=== PATIENT | female | born 1960 | race Caucasian/White ===

== ENCOUNTER → 2016-10-30 | Outpatient (CLI) | payer OTHER ==
[~2016-10-30] MED LIST: 'PARAFON FORTE500 M1 PO; ADVAIR DISKUS 51 DSK IH; ALBUTEROL INH; ALBUTEROL0.09 MG/A2 IH; ANAPROX DS550 MG PO; ASPIRIN81 M1 PO; ATIVAN1 MG PO; CENTRUM SILVER1 TA2 PO; CLINDAMYCIN HC300 MG PO; COMBIVENT1 ARO IH; DULE1ARO1 INH; EFFEXOR XR75 M1 PO; EFFEXOR75 MG PO; EVISTA60 MG PO; FIBER CHOICE PL1 CTB PO; FLEXERIL10 MG PO; HYDROCODONE BIT1 T11 PO; IPRATROPIUM INH; L-LYSINE1000 MG PO; LEVAQUIN750 MG PO; LEVOFLOXACIN500 MG PO; LIPITOR40 MG PO; MOBIC15 MG PO; NAPROSYN500 MG PO; NEXIUM40 MG PO; PREDNICOT10 MG PO; PROZAC40 MG PO; ROBITUSSIN AC 110 ML PO; TRAMADOL HCL50 MG PO; VICODIN 5/500 505 MG PO; VITAMIN D 3 PO; ZITHROMAX Z PA250 MG PO; ZOCOR40 MG PO; [UNRECOGNIZED DRUG - OTHER] INH
[2016-10-30 13:25] LABS: BASO % 0.6 % (0.0-1.0); EOS % 0.3 % (1.0-4.0); HEMATOCRIT 31.4 % (37.0-47.0); HEMOGLOBIN 9.9 g/dl (12.0-16.0); IG # 0.1 10*3/uL (0.0-0.1); LYMPH % 28.1 % (27.0-41.0); MEAN CELL VOLUME 87.7 fl (81.0-99.0); MEAN CORPUSCULAR HGB 27.7 pg (27.0-31.0); MEAN CORPUSCULAR HGB CONC 31.5 g/dl (33.0-37.0); MEAN PLATELET VOLUME 8.9 fl (9.6-12.3); MONO # 0.6 10*3/uL (0.1-1.0); MONO % 8.7 % (3.0-9.0); NEUT # 4.4 10*3/uL (2.3-7.9); NEUT % 61.6 % (47.0-73.0); PLATELET COUNT AUTOMATED 663 10*3/uL (130-400); RED BLOOD COUNT 3.58 10*6/uL (4.10-5.10); RED CELL DISTRI WIDTH 14.8 % (0-14.5); WHITE BLOOD COUNT 7.1 10*3/uL (4.8-10.8)
== END | disposition home or self-care (01) ==
LOC: LAB 13:08
PROVIDERS: Internal Medicine Hematology & Oncology
DX: C50.912 Malignant neoplasm of unspecified site of left female breast (principal)

== ENCOUNTER → 2016-11-07 | Outpatient (CLI) | payer OTHER ==
[2016-11-07 12:51] LABS: HEMATOCRIT 32.4 % (37.0-47.0); HEMOGLOBIN 10.2 g/dl (12.0-16.0); MEAN CELL VOLUME 88.8 fl (81.0-99.0); MEAN CORPUSCULAR HGB 27.9 pg (27.0-31.0); MEAN CORPUSCULAR HGB CONC 31.5 g/dl (33.0-37.0); MEAN PLATELET VOLUME 9.8 fl (9.6-12.3); PLATELET COUNT AUTOMATED 368 10*3/uL (130-400); RED BLOOD COUNT 3.65 10*6/uL (4.10-5.10); RED CELL DISTRI WIDTH 15.2 % (0-14.5); WHITE BLOOD COUNT 10.4 10*3/uL (4.8-10.8)
[2016-11-07 13:16] LABS: DOHLE BODIES MODERATE; LYMPHOCYTE # 1.2 10*3/uL (1.3-4.4); NEUTROPHIL # 9.2 10*3/uL (2.3-7.9); NEUTROPHILS 88 % (47-73); PLATELET SUFFICIENCY NORMAL (NORMAL); TOTAL CELLS COUNTED 100 #CELLS; TOXIC GRANULATION SLIGHT
== END | disposition home or self-care (01) ==
LOC: LAB 12:32
PROVIDERS: Internal Medicine Hematology & Oncology
DX: C50.912 Malignant neoplasm of unspecified site of left female breast (principal)

== ENCOUNTER → 2017-08-20 | Day surgery (SDC) | payer SELFPAY ==
[~2017-08-20] VITALS: Ht 167.6 cm; Wt 66.7 kg
[~2017-08-20] MED LIST changes: +ALENDRONATE SOD70 M1 PO; +FENOFIBRATE160 MG PO; +TAMOXIFEN CITRA20 MG PO; +ZOFRAN8 M1 PO
--- NOTE | ~2017-08-20 | PROC NOTE ---
[place], [place] PROCEDURE NOTE NAME: KAROLINA CORTEZ [facility] #: [id number] UNIT #: [id number] ROOM: DOCTOR: DAISY RAI MD,AMINATA BIRTHDATE: [birth year] DOS: 08/20/2017 PROCEDURE: Fiberoptic bronchoscopy. PREOPERATIVE DIAGNOSIS: The patient with evidence of a nodule noted in the right upper lung as a cluster. POSTOPERATIVE DIAGNOSES: The patient with mucus impaction in the airway, endobronchial tree bilaterally. No endobronchial obstructive lesions. PROCEDURE DESCRIPTION: Informed consent obtained for the patient. The patient brought to the OR and placed in supine position. Conscious sedation administered by Anesthesia Department. After achieving proper sedation, airway introduced into the mouth. Bronchoscope advanced to the airway into laryngeal area. Epiglottis and vocal cords were seen. Bronchoscope advanced to the vocal cord and tracheal lumen. Tracheal lumen was identified for this patient with moderate amount of mucus secretion, which was suctioned out to the gian level. All the bronchial opening was examined. There were no endobronchial obstructive lesion, mucous plug was cleared off of endobronchial tree bilaterally. Bronchial washings sent for culture. Procedure well tolerated by the patient without any difficulty. The patient will be continued on current treatment and outpatient followup has been scheduled for the patient to discuss the finding and culture results. AMINATA VILLA MD CM:PROCNOTE:PROCEDURE NOTE 1403 [id number] AMINATA RAI MD
[2017-08-20 08:10] VITALS: BP 107/50
[2017-08-20 09:25] VITALS: BP 83/49
[2017-08-20 09:40] VITALS: BP 113/56
[2017-08-20 09:55] VITALS: BP 118/56
[2017-08-21 14:08] LABS: ACID FAST SPEC PROCESSING Concentration (.)
== END | disposition home or self-care (01) ==
LOC: SDC 08-17 16:15
PROVIDERS: Internal Medicine Critical Care Medicine
DX: J40 Bronchitis, not specified as acute or chronic (principal); J44.9 Chronic obstructive pulmonary disease, unspecified; K21.9 Gastro-esophageal reflux disease without esophagitis; F41.9 Anxiety disorder, unspecified; F32.9 Major depressive disorder, single episode, unspecified; F17.210 Nicotine dependence, cigarettes, uncomplicated; Z96.651 Presence of right artificial knee joint; Z98.890 Other specified postprocedural states; Z88.0 Allergy status to penicillin; Z88.1 Allergy status to other antibiotic agents; Z79.899 Other long term (current) drug therapy; Z85.3 Personal history of malignant neoplasm of breast

== ENCOUNTER → 2017-08-23 | Outpatient (CLI) | payer SELFPAY | END | disposition home or self-care (01) | LOC: MAMMO 09:00 | DX: Z12.31 Encounter for screening mammogram for malignant neoplasm of breast (principal); Z51.11 Encounter for antineoplastic chemotherapy; Z45.2 Encounter for adjustment and management of vascular access device; C50.912 Malignant neoplasm of unspecified site of left female breast; D70.1 Agranulocytosis secondary to cancer chemotherapy; R11.2 Nausea with vomiting, unspecified; I95.9 Hypotension, unspecified; D64.81 Anemia due to antineoplastic chemotherapy; T82.868A Thrombosis due to vascular prosthetic devices, implants and grafts, initial encounter; C50.412 Malignant neoplasm of upper-outer quadrant of left female breast; Z90.12 Acquired absence of left breast and nipple ==

== ENCOUNTER 2018-03-02 17:00 | Inpatient (IN) | payer SELFPAY ==
[~2018-03-02] VITALS: Ht 162.6 cm; Wt 62.8 kg
--- NOTE | ~2018-03-02 | PR ---
[place], [place] PROGRESS NOTE NAME: KAROLINA CORTEZ [facility] #: [id number] UNIT #: [id number] ROOM: 512 DOCTOR: YOEL NEWTON DO BIRTHDATE: [birth year] DOS: 03/06/2018 SUBJECTIVE: The patient was seen and examined at the bedside. She reports experiencing abdominal pain whenever she coughs. The cough remains dry and she denies fevers, chills, chest pain, nausea, vomiting or abdominal pain. OBJECTIVE: VITAL SIGNS: Showed temperature at 98.2 degrees Fahrenheit, pulse rate is 92, respiratory rate is 18, blood pressure is 125/65, pulse ox is 99% on room air. GENERAL APPEARANCE: The patient was alert, awake, cooperative, responsive and in no acute distress. HEENT: The head was normocephalic and atraumatic. The eyes were without lesions or ulcerations. NECK: The trachea was midline. RESPIRATORY: Rhonchi and expiratory wheezing was appreciated, but list is noted to be improved from prior examinations. CARDIOVASCULAR: Regular rate and rhythm. No gallops, rubs, or murmurs were appreciated and the patient was without edema to her lower extremities. ABDOMEN: Soft and nontender to palpation. Bowel sounds were auscultated on exam. LABORATORY DATA: The CBC from today shows a white count at 9.7, hemoglobin at 10.4, hematocrit at 32.8 and platelet count at 434. Chemistries from today show sodium at 142, potassium at 4.5, chloride at 106, bicarbonate at 30, BUN at 19, creatinine at 1.07, glucose at 88, calcium at 9.1, magnesium at 1.7, total bilirubin at 0.2, AST at 17, ALT at 34, alkaline phosphatase at 53 and albumin at 2.8. Again, sputum culture is noted to have grown out Enterobacter aerogenes and the sensitivities were reviewed. IMPRESSION: 1. Acute exacerbation of chronic obstructive pulmonary disease and this is improving. 2. History of breast cancer. 3. Tobacco abuse. 4. Moderate protein-calorie malnutrition. PLAN OF MANAGEMENT: From a pulmonary standpoint, the patient is stable for discharge and it is advised that she be discharged with oral Levaquin and a prednisone taper. Yoel Newton DO [place], [place] PROGRESS NOTE NAME: CEE CORTEZTIM Rueda UNIT #: [id number] ROOM: 512 DOCTOR: YOEL NEWTON DO BIRTHDATE: [birth year] AMINATA VILLA MD CM:TIFFANI [id number] YOEL NEWTON DO 03/06/18 1054 interface
--- NOTE | ~2018-03-02 | PR ---
[place], [place] PROGRESS NOTE NAME: KAROLINA CORTEZ [facility] #: [id number] UNIT #: [id number] ROOM: 512 DOCTOR: DAISY RAI MD,AMINATA BIRTHDATE: [birth year] DOS: 03/04/2018 SUBJECTIVE: The patient noted comfortable without any acute distress, resting on the bed. The coughing has been noted decreased. There were symptoms of chest pain. The wheezing was also reported. Denies symptoms of abdominal pain. The cultures of yesterday noted with gram-negative rods. OBJECTIVE: VITAL SIGNS: The patient showed normal temperature, respiratory rate 18, heart rate 62 and blood pressure 134/69. Pulse oxygen saturation patient on room air was 97% saturation. HEENT: No acute change. NECK: Supple. CARDIOVASCULAR: S1, S2 is audible. LUNGS: Expiratory wheezing without any crackles. ABDOMEN: Soft and nontender. LABORATORY DATA: Culture of the sputum light growth of gram-negative bacilli. The Gram stain was noted with moderate epithelial cells, pretty white blood cells, many budding yeast, few gram-positive cocci in pairs. IMPRESSION: 1. Bilateral pulmonary nodular opacity with possibility of chronic infection etiologies. 2. History of breast cancer. 3. Acute tracheobronchitis, gram-negative bacilli, pending identification sensitivities. PLAN OF MANAGEMENT: Monitor culture results. No changes in treatment at this time immediately will be needed. Continuation of all other previous treatment as in progress. Usual care. Supportive plan of treatment. AMINATA VILLA MD CM:PNTRANS [id number] AMINATA RAI MD 03/04/18 1037 interface
--- NOTE | ~2018-03-02 | PR ---
[place], [place] PROGRESS NOTE NAME: KAROLINA CORTEZ [facility] #: [id number] UNIT #: [id number] ROOM: 512 DOCTOR: DAISY RAI MD,AMINATA BIRTHDATE: [birth year] DOS: 03/06/2018 PULMONARY PROGRESS NOTE SUBJECTIVE: The patient was independently seen and examined today with [id number] encounter, history was confirmed. Physical examination performed. The labs were reviewed. Assessment and management of the patient for today's was personally completed. Note done by the medical esthetician, was approved. She has been noted with gradual reduction. There were no sputum expectoration. Denies symptoms of fever or chills. Denies any abdominal pain. PHYSICAL EXAMINATION: VITAL SIGNS: For the patient, which has been recorded showed the temperature noted as normal. The respiratory rate 18, heart rate 92, blood pressure was normal. A pulse oxygen saturation of the patient recorded as 99% saturation on room air at rest. LUNGS: Noted with occasional wheezing, no crackles. ABDOMEN: Soft, nontender. EXTREMITIES: No edema. LABORATORY DATA: CBC: WBC count normal, hemoglobin 10. IMPRESSION: The patient with progressive resolution and acute tracheobronchitis, gram-negative infection, started on the fluoroquinolones orally, steroids have been gradually decreased. PLAN OF TREATMENT: Continuation of the current therapy for the patient as previously. All other plan of management and care. Other therapies. AMINATA VILLA MD CM:PNTRANS [id number] AMINATA RAI MD 03/28/18 0744 interface
--- NOTE | ~2018-03-02 | EKG ---
[place], [place] ELECTROCARDIOGRAM REPORT NAME: KAROLINA CORTEZ UNIT #: [id number] ROOM: 512 DOCTOR: TERESA DRAFT REPORT BIRTHDATE: [birth year] [facility] Test Date: 2018-03-02 Test Time: 18:00:11 Pat Name: KAROLINA CORTEZ Department: 5E Room: 512 Gender: F Sandwich [employer] Carrier: Sada Tirado : 1960 Requested By: RANDALL ECKERT Order Number: [id number] Reading MD: Jose Briones MD Measurements Intervals [place] Rate: 103 P: 89 WI: 132 QRS: 93 QRSD: 87 T: 39 QT: 341 QTc: 447 Interpretive Statements Sinus tachycardia Borderline right axis deviation Baseline wander in lead(s) V4,V6 Electronically Signed On 03-04-2018 8:41:05 PDT by Jose Briones MD CM:EKGRPT:ELECTROCARDIOGRAM REPORT [id number] RANDALL ECKERT EPIPHANY DRAFT REPORT RANDALL ECKERT
--- NOTE | ~2018-03-02 | PR ---
[place], [place] PROGRESS NOTE NAME: KAROLINA CORTEZ [facility] #: [id number] UNIT #: [id number] ROOM: 512 DOCTOR: YOEL FLORES DO BIRTHDATE: [birth year] DOS: 03/05/2018 ATTENDING PHYSICIAN: Dr. Aminata Villa. SUBJECTIVE: The patient was seen and examined at the bedside. She was noted to be comfortable and in no apparent distress. The patient complains of subjective chills as well as a dry cough. She denies fevers, chest pain, nausea, vomiting, or abdominal pain. OBJECTIVE: VITAL SIGNS: Temperature was 97.7, heart rate was 84, respiratory rate was 18, blood pressure was 125/72, and her pulse oximetry was 99% on room air. GENERAL APPEARANCE: The patient was awake, alert, in no acute distress and she was responsive. HEENT: Her head was normocephalic and atraumatic. Eyes were without lesions or ulcerations. NECK: Similarly without lesions, scars or masses. RESPIRATORY: Lungs were with wheezing diffusely. The patient was with occasional coughing. No crackles were appreciated. ABDOMEN: Soft and nontender. Bowel sounds were auscultated. LABORATORY DATA: Most recent labs from 03/04/2018 show CBC significant for a white count at 6.6, hemoglobin at 9.6, hematocrit at 31.3, and platelets at 337. Her chemistries show sodium at 143, potassium at 4.3, chloride at 112, bicarbonate at 25, BUN at 10, creatinine at 0.95, glucose at 150, and calcium at 8.3. Sputum culture obtained on 03/03/2018 shows final growth for light amount of Enterobacter aerogenes with resistance to Augmentin, ampicillin, Unasyn and cefuroxime. IMPRESSION: 1. Acute exacerbation of chronic obstructive pulmonary disease, which is improving. 2. Acute renal failure, which has resolved. 3. History of breast cancer. 4. Tobacco abuse. PLAN OF MANAGEMENT: IV steroids have been decreased in frequency to Solu-Medrol 40 mg daily. IV antibiotics are to be discontinued and the patient is to be transitioned to oral antibiotics. The patient is stable from a pulmonary standpoint for consideration of discharge planning. Yoel Chiao, DO [place], [place] PROGRESS NOTE NAME: CEE CORTEZTIM Rueda UNIT #: [id number] ROOM: 512 DOCTOR: YOEL FLORES DO BIRTHDATE: [birth year] AMINATA VILLA MD CM:PNMATY [id number] YOEL FLORES DO 03/05/188 interface
--- NOTE | ~2018-03-02 | CON ---
[place], [place] REPORT OF CONSULTATION NAME: KAROLINA CORTEZ [facility] #: [id number] UNIT #: [id number] ROOM: 512 DOCTOR: AMINATA PIMENTEL MD BIRTHDATE: [birth year] DOS: 03/03/2018 REASON FOR CONSULTATION: To assess the patient's current normal CT scan of chest and other abnormal respiratory symptoms. HISTORY OF PRESENT ILLNESS: This is a 57-year-old white female patient who has been known to me from the past. The patient has been assessed once in the office in 08/2017 underwent fibrobronchoscopy for assessment of pulmonary nodules. Bronchoscopy done that was noted negative from further findings of Mycobacterium avium complex of the infection. The patient was doing well until the last few days. The patient developed symptoms of increased chest congestion, coughing without any sputum expectoration. Denies symptoms of hemoptysis, fever or chills. The patient denies symptoms of weight loss. Shortness of breath was noted for this patient that has been noted worsened. REVIEW OF SYSTEMS: Remaining systems were reviewed with the patient as follows: CONSTITUTIONAL: She does have of fatigue and tiredness. Denies symptoms of fever or chills. EYES: Denies any burning, redness, or tenderness. EARS, NOSE, THROAT SYMPTOMS: Denies sore throat, hoarseness, otalgia, postnasal drainage. CARDIOVASCULAR: Denies anginal pain, edema or pain of the lower extremities. GASTROINTESTINAL: Dysphagia, nausea, vomiting, diarrhea, abdominal pain, hematemesis, melena or hematochezia. SKIN: Denies abnormal lesions or rashes. CENTRAL NERVOUS SYSTEM: No dizziness, headache, diplopia, syncopal episodes. The remaining systems were reviewed, they were noted all negative. PAST MEDICAL HISTORY: The patient was known with history of: 1. Chronic obstructive pulmonary disease. 2. History of pulmonary nodule, which was known for this patient in the past for this patient with ground glass opacity and micronodule clusters noted in the right upper lobe. CT scan in [facility] on 08/09/2017. 3. History of breast cancer for this patient was also known for this patient diagnosed in 2004 and later in 05/2018, underwent lumpectomy and currently getting hormonal treatment. 4. History of general anxiety disorder for this patient. 5. Gastroesophageal reflux. 6. Hypercholesterolemia. 7. Hyperlipidemia. 8. Osteoporosis. 9. Bronchial asthma. PAST SURGICAL HISTORY: 1. Carpal tunnel release. 2. . 3. Lumpectomy, left breast in 2004 and then in 05/2018 in [facility]. 4. Laparoscopic cholecystectomy. [place], [place] REPORT OF CONSULTATION NAME: KAROLINA CORTEZ UNIT #: [id number] ROOM: [facility] DOCTOR: HEMA PIMENTEL MDM BIRTHDATE: 60 5. D and C. 6. Right total knee replacement. 7. Fibrobronchoscopy done of the right upper lobe in the bronchial washing rather done on 08/20/2017. SOCIAL HISTORY: The patient is , has 2 children, lives at home, work in the [employer] for 29 years. She has been noted tobacco use from age of [age] years old, 2 packs of cigarettes per day, still smoking cigarettes actively. Denies any history of alcohol use or illicit drugs. FAMILY HISTORY: Father at 85 years old, complication of congestive heart failure. Mother at 60 years with complication related to the breast cancer. MEDICATIONS: Medications, which has been listed at the time of admission from home use of lorazepam, Dulera, multivitamin, Lipitor, Nexium, Vicodin, Effexor, fenofibrate, tamoxifen, Fosamax and other p.r.n. medications. DRUG ALLERGIES: Noted allergies: 1. PENICILLIN. 2. SULFA DRUGS. PHYSICAL EXAMINATION: GENERAL: A 57-year-old female patient who has been currently noted to be awake and alert without any acute distress at this time of the assessment. VITAL SIGNS: Height were recorded by the nursing staff for the current admission with height of 5 feet 4 inches, weight 138 pounds, BMI 23. Temperature 99.8 degrees Fahrenheit a normal temperature, respiratory rate 18-20, heart rate of 62-100, blood pressure 113/75-106/55 and pulse ox saturation on room air was 95% saturation. HEENT: Examination shows head was atraumatic. Eyes nonicterus. NECK: Supple. CARDIOVASCULAR: S1, S2 is audible. LUNGS: The patient was noted without any crackles. Expiratory wheezing noted diffusely in the lungs. ABDOMEN: Soft, nontender and flat. EXTREMITIES: Without any acute edema. SKIN: Visible skin lesions or rashes. CENTRAL NERVOUS SYSTEM: No gross focal neurologic deficit. LABORATORY DATA: The lab review for this patient. The CBC that was done in the Emergency yesterday were noted with WBC count 13.7, hemoglobin 11.8, remaining CBC normal. CMP for the patient on 03/02/2018, BUN 21, creatinine 1.38. BUN and creatinine were normal. Troponin rather 3 sets yesterday were noted normal. The CBC of this morning, hemoglobin 9.6, WBC count normal and platelet count remains normal. BMP this morning noted normal BUN. The creatinine noted as 1.04. Urinalysis noted, 3+ leukocyte esterase. PT/PTT yesterday were noted as normal. Chest x-ray of the patient, review for patient of 03/02/2018, for the patient noted with a change in hyperinflation. No visible gross pulmonary nodules. The CT scan chest that was done without contrast yesterday, the [place], [place] REPORT OF CONSULTATION NAME: KAROLINA CORTEZ UNIT #: [id number] ROOM: [facility] DOCTOR[facility] [birth year] patient was reviewed, shows evidence of scarring was noted mostly in the upper lung. Scattered pulmonary nodules, tree-in-bud appearance was noted in the right upper lobe as well as the bilateral lower lobes. The nodule noted in micronodule patient is central lobular appearance. There was no lymphadenopathy. Acute infiltration noted for patient consolidation in the left lower lobe. IMPRESSION: 1. The patient who has been currently noted with evidence of current pulmonary nodule, which has been noted in the right upper and lower lobe as well and acute pneumonia in the left lower lobe, nonaspiration. 2. The patient with acute exacerbation of bronchial asthma and chronic obstructive pulmonary disease would be considered as well. 3. Current differential diagnosis for the patient of the nodule patient would be considered as atypical infection less likely to be a malignant process; however, the bronchoscopy recently did not isolate any acid fast, for the patient at that time. 4. History of known breast cancer. The patient recurrence of the left breast cancer, currently treated with hormonal treatment after surgery for the patient since 05/2017. PLAN OF MANAGEMENT: The patient is already getting Solu-Medrol, bronchodilators, and antibiotics for community-acquired infection. The patient with Zithromax and Rocephin will be continued. Sputum for Gram stain was ordered. Nicotine replacement patch to overcome the nicotine withdrawal. The acid-fast bacillus was ordered to assess the patient for the next 3 specimens once every day. Other plan of therapy and the management change will be ordered based on the progression of the illness. Thanks for allowing me to participate in the care of this patient. AMINATA VILLA MD CM:CONSTR:REPORT OF CONSULTATION 1340 03/28/18 0742 interface
--- NOTE | ~2018-03-02 | PR ---
[place], [place] PROGRESS NOTE NAME: KAROLINA CORTEZ UNIT #: [id number] ROOM: 512 DOCTOR: AMINATA PIMENTEL MD BIRTHDATE: [birth year] DOS: 03/05/2018 The patient start an insert as the patient was independently seen and examined, [id number] encounter, history was confirmed. Physical examination was performed. Labs reviewed. Assessment and management of the patient personally completed. Note done by the emergency medical service coordinator, was approved. SUBJECTIVE: The patient has been noted comfortable at this time, resting on the bed. The coughing has been currently noted nonproductive. She has a reduction sputum expectoration and shortness of breath. The patient was improving. There were no symptoms of chest pain. PHYSICAL EXAMINATION: VITAL SIGNS: Her temperature was noted as normal, respiratory rate 18, heart rate 84 and blood pressure 125/72. Pulse ox saturation on room air 99% saturation. HEENT: No new change. NECK: Supple. CARDIOVASCULAR: S1, S2 is audible. LUNGS: The patient noted with moderate decreased breath sounds without any wheezing. There were no crackles. ABDOMEN: Soft and nontender. EXTREMITIES: No edema. LABORATORY DATA: Culture of the sputum noted light growth of Enterobacter aerogenes, which were noted since multiple antibiotics including fluoroquinolones and others. IMPRESSION: 1. Resolving acute exacerbation of chronic obstructive pulmonary disease, acute tracheobronchitis for this patient at this time with current medical management was given with use of the Zithromax and the Rocephin. 2. History of chronic nicotine dependence as well. 3. Pulmonary nodule workup while the patient remains in progress. PLAN OF MANAGEMENT: Decrease Solu-Medrol 40 mg daily, discontinue Rocephin after today's dose and switching the patient oral Ceftin. Discharge planning could be started from primary care attending. Outpatient followup to be step, the patient post-discharge. Monitor pulmonary nodules and other workup as needed. [place], [place] PROGRESS NOTE NAME: KAROLINA CORTEZ UNIT #: [id number] ROOM: 512 DOCTOR: AMINATA PIMENTEL MD BIRTHDATE: [birth year] AMINATA VILLA MD CM:PNTRANS [phone] AMINATA RAI MD 03/05/18 1016 interface
[2018-03-02 17:05] VITALS: BP 113/75
[2018-03-02 17:29] LABS: BASO # 0.1 10*3/uL (0.0-0.1); BASO % 0.4 % (0.0-1.0); EOS # 0.8 10*3/uL (0.0-0.4); EOS % 5.5 % (1.0-4.0); HEMOGLOBIN 11.8 g/dl (12.0-16.0); LYMPH # 2.1 10*3/uL (1.3-4.4); LYMPH % 15.3 % (27.0-41.0); MEAN CELL VOLUME 89.4 fl (81.0-99.0); MEAN CORPUSCULAR HGB 28.5 pg (27.0-31.0); MEAN CORPUSCULAR HGB CONC 31.9 g/dl (33.0-37.0); MEAN PLATELET VOLUME 9.8 fl (9.6-12.3); MONO # 0.9 10*3/uL (0.1-1.0); MONO % 6.6 % (3.0-9.0); NEUT # 9.9 10*3/uL (2.3-7.9); PLATELET COUNT AUTOMATED 379 10*3/uL (130-400); RED BLOOD COUNT 4.14 10*6/uL (4.10-5.10); RED CELL DISTRI WIDTH 13.2 % (0-14.5); WHITE BLOOD COUNT 13.7 10*3/uL (4.8-10.8)
[2018-03-02 17:45] LABS: ACT PARTIAL THROMBO TIME 26.6 SECONDS (20.8-31.5); INTERNATIONAL NORM RATIO 1.1 (2.0-3.5)
[2018-03-02 17:46] LABS: ALBUMIN 3.5 gm/dl (3.1-4.5); ALKALINE PHOSPHATASE 64 U/L (45-117); BUN 21 mg/dl (7-24); CHLORIDE 103 mmol/L (98-107); CREATININE 1.38 mg/dL (0.55-1.02); LIPASE 90 U/L (73-393); POTASSIUM 3.7 mmol/L (3.5-5.1); SGOT/AST 21 IU/L (3-35); SGPT/ALT 27 U/L (12-78); SODIUM 138 mmol/L (136-145); TOTAL PROTEIN 8.4 gm/dL (6.4-8.2); TROPONIN I < 0.015 ng/ml (<0.045)
[2018-03-02 20:10] VITALS: BP 108/57
[2018-03-03] VITALS: BP 101/55
[2018-03-03 06:33] LABS: BASO # 0.1 10*3/uL (0.0-0.1); BASO % 0.5 % (0.0-1.0); EOS # 0.7 10*3/uL (0.0-0.4); EOS % 7.1 % (1.0-4.0); LYMPH % 21.3 % (27.0-41.0); MEAN CELL VOLUME 90.9 fl (81.0-99.0); MEAN CORPUSCULAR HGB 29.3 pg (27.0-31.0); MEAN CORPUSCULAR HGB CONC 32.2 g/dl (33.0-37.0); MEAN PLATELET VOLUME 10.1 fl (9.6-12.3); MONO # 0.8 10*3/uL (0.1-1.0); MONO % 8.5 % (3.0-9.0); NEUT # 5.9 10*3/uL (2.3-7.9); NEUT % 62.3 % (47.0-73.0); PLATELET COUNT AUTOMATED 330 10*3/uL (130-400); RED BLOOD COUNT 3.28 10*6/uL (4.10-5.10); RED CELL DISTRI WIDTH 13.3 % (0-14.5); WHITE BLOOD COUNT 9.5 10*3/uL (4.8-10.8)
[2018-03-03 06:34] LABS: HEMATOCRIT 29.8 % (37.0-47.0); HEMOGLOBIN 9.6 g/dl (12.0-16.0)
[2018-03-03 06:47] LABS: BUN 13 mg/dl (7-24); CHLORIDE 111 mmol/L (98-107); CHOLESTEROL 107 mg/dL (<200); CREATININE 1.04 mg/dL (0.55-1.02); PHOSPHOROUS 2.1 mg/dL (2.5-4.9); POTASSIUM 3.8 mmol/L (3.5-5.1); SODIUM 144 mmol/L (136-145); TRIGLYCERIDES 110 mg/dl (<150); VLDL CHOLESTEROL 22 mg/dL (6-40)
[2018-03-03 06:55] LABS: FREE T4 1.04 ng/dl (0.76-1.46); HDL CHOLESTEROL 26 mg/dl (40-60); LDL CHOLESTEROL 59 mg/dL (9-159); THYROID STIM HORMONE (HS) 0.695 uIU/ml (0.358-4.75)
[2018-03-03 06:59] LABS: BILIRUBIN NEGATIVE (NEGATIVE); BLOOD TRACE-INTACT (NEGATIVE); CLARITY CLEAR (CLEAR); COLOR YELLOW (YELLOW); GLUCOSE NEGATIVE (NEGATIVE); KETONE NEGATIVE (NEGATIVE); LEUKO ESTERASE 3+ (NEGATIVE); NITRITE NEGATIVE (NEGATIVE); SPECIFIC GRAVITY <= 1.005 (1.005-1.030); UROBILINOGEN 0.2 E.U./dl (0.2-1.0)
[2018-03-03 07:11] LABS: BACTERIA TRACE; WBC 16-20 wbc/hpf (0-5)
[2018-03-03 07:53] LABS: VITAMIN D, 25-HYDROXY 29.9 ng/mL (30-100)
[2018-03-03 08:00] VITALS: BP 110/58
[2018-03-03] MEDS ORDERED: VITAMIN D35000 UNIT PO (11:34)
[2018-03-03] MEDS ORDERED: NORCO 10-325 T1 EACH PO (11:39)
[2018-03-03] MEDS ORDERED: ARIMIDEX1 MG PO (11:45)
[2018-03-03] MEDS ORDERED: HYDROXYZINE HCL50 MG PO (11:47)
[2018-03-03 12:00] VITALS: BP 106/55
[2018-03-03] MEDS ORDERED: CLONAZEPAM1 MG PO (12:03)
[2018-03-03 16:00] VITALS: BP 109/58
[2018-03-03 20:00] VITALS: BP 107/60
[2018-03-04] VITALS: BP 119/59
[2018-03-04 06:59] LABS: BASO % 0.3 % (0.0-1.0); EOS % 0.2 % (1.0-4.0); HEMATOCRIT 31.3 % (37.0-47.0); HEMOGLOBIN 9.6 g/dl (12.0-16.0); LYMPH # 0.9 10*3/uL (1.3-4.4); LYMPH % 13.4 % (27.0-41.0); MEAN CELL VOLUME 92.1 fl (81.0-99.0); MEAN CORPUSCULAR HGB 28.2 pg (27.0-31.0); MEAN CORPUSCULAR HGB CONC 30.7 g/dl (33.0-37.0); MONO # 0.3 10*3/uL (0.1-1.0); MONO % 4.8 % (3.0-9.0); NEUT # 5.4 10*3/uL (2.3-7.9); NEUT % 80.8 % (47.0-73.0); PLATELET COUNT AUTOMATED 337 10*3/uL (130-400); RED CELL DISTRI WIDTH 13.4 % (0-14.5); WHITE BLOOD COUNT 6.6 10*3/uL (4.8-10.8)
[2018-03-04 07:09] LABS: BUN 10 mg/dl (7-24); CHLORIDE 112 mmol/L (98-107); CREATININE 0.95 mg/dL (0.55-1.02); POTASSIUM 4.3 mmol/L (3.5-5.1); SODIUM 143 mmol/L (136-145)
[2018-03-04 08:00] VITALS: BP 134/69
[2018-03-04 12:00] VITALS: BP 127/60
[2018-03-04 16:00] VITALS: BP 113/63
[2018-03-04 20:00] VITALS: BP 114/65
[2018-03-05] VITALS: BP 130/56
[2018-03-05 08:00] VITALS: BP 125/72
[2018-03-05 12:00] VITALS: BP 118/59
[2018-03-05 16:00] VITALS: BP 124/60
[2018-03-05 20:00] VITALS: BP 107/54
[2018-03-06] VITALS: BP 114/60
[2018-03-06 06:23] LABS: BASO # 0.1 10*3/uL (0.0-0.1); BASO % 0.9 % (0.0-1.0); EOS # 0.3 10*3/uL (0.0-0.4); EOS % 3.2 % (1.0-4.0); HEMATOCRIT 32.8 % (37.0-47.0); HEMOGLOBIN 10.4 g/dl (12.0-16.0); LYMPH # 2.8 10*3/uL (1.3-4.4); MEAN CELL VOLUME 90.4 fl (81.0-99.0); MEAN CORPUSCULAR HGB 28.7 pg (27.0-31.0); MEAN CORPUSCULAR HGB CONC 31.7 g/dl (33.0-37.0); MEAN PLATELET VOLUME 9.6 fl (9.6-12.3); MONO # 0.8 10*3/uL (0.1-1.0); MONO % 8.3 % (3.0-9.0); NEUT # 5.6 10*3/uL (2.3-7.9); PLATELET COUNT AUTOMATED 434 10*3/uL (130-400); RED BLOOD COUNT 3.63 10*6/uL (4.10-5.10); RED CELL DISTRI WIDTH 13.7 % (0-14.5); WHITE BLOOD COUNT 9.7 10*3/uL (4.8-10.8)
[2018-03-06 06:40] LABS: ALBUMIN 2.8 gm/dl (3.1-4.5); ALKALINE PHOSPHATASE 53 U/L (45-117); BUN 19 mg/dl (7-24); CHLORIDE 106 mmol/L (98-107); CREATININE 1.07 mg/dL (0.55-1.02); POTASSIUM 4.5 mmol/L (3.5-5.1); SGOT/AST 17 IU/L (3-35); SGPT/ALT 34 U/L (12-78); SODIUM 142 mmol/L (136-145)
[2018-03-06 08:00] VITALS: BP 125/65
[2018-03-06] MEDS ORDERED: PREDNISONE10 MG PO (11:02)
[2018-03-06] MEDS ORDERED: LEVAQUIN500 M2 PO (11:02)
[2018-03-06] MEDS ORDERED: MUCINEX ER600 MG PO (11:02)
[2018-03-06 16:08] LABS: ACID FAST SPEC PROCESSING Concentration (.)
[2018-04-25 17:10] LABS: ACID FAST CULTURE Positive (.); M AVIUM COMPLEX Negative (.); M GORDONAE Negative (.); M KANSASII Negative (.); M TUBERCULOSIS COMPLEX Negative (.)
== END 2018-03-06 15:23 | disposition home or self-care (01) | DRG 871 ==
LOC: ED 17:00 → EDHOLD 18:41 → 5E 18:41
PROVIDERS: Emergency Medicine; Internal Medicine; Internal Medicine Critical Care Medicine; Nurse Practitioner Family
DX: A41.9 Sepsis, unspecified organism (principal); N17.0 Acute kidney failure with tubular necrosis; J18.1 Lobar pneumonia, unspecified organism; J44.1 Chronic obstructive pulmonary disease with (acute) exacerbation; J45.901 Unspecified asthma with (acute) exacerbation; E44.0 Moderate protein-calorie malnutrition; J44.0 Chronic obstructive pulmonary disease with (acute) lower respiratory infection; D50.9 Iron deficiency anemia, unspecified; F41.1 Generalized anxiety disorder; K21.9 Gastro-esophageal reflux disease without esophagitis; M81.0 Age-related osteoporosis without current pathological fracture; B96.89 Other specified bacterial agents as the cause of diseases classified elsewhere; E78.5 Hyperlipidemia, unspecified; R65.20 Severe sepsis without septic shock; Z96.651 Presence of right artificial knee joint; E78.00 Pure hypercholesterolemia, unspecified; F17.200 Nicotine dependence, unspecified, uncomplicated; H57.02 Anisocoria; Z90.12 Acquired absence of left breast and nipple; Z92.21 Personal history of antineoplastic chemotherapy; Z88.2 Allergy status to sulfonamides; Z88.0 Allergy status to penicillin; Z79.899 Other long term (current) drug therapy; Z79.4 Long term (current) use of insulin; Z98.51 Tubal ligation status; Z82.49 Family history of ischemic heart disease and other diseases of the circulatory system; Z83.3 Family history of diabetes mellitus; Z80.3 Family history of malignant neoplasm of breast; Z92.3 Personal history of irradiation; Z85.3 Personal history of malignant neoplasm of breast; Z98.891 History of uterine scar from previous surgery; Z90.49 Acquired absence of other specified parts of digestive tract; Z68.23 Body mass index [BMI] 23.0-23.9, adult

== ENCOUNTER 2018-05-26 12:50 | Inpatient (IN) | payer SELFPAY ==
[~2018-05-26] VITALS: Ht 165.1 cm; Wt 66.5 kg
--- NOTE | ~2018-05-26 | EKG ---
[place], [place] ELECTROCARDIOGRAM REPORT NAME: KAROLINA CORTEZ UNIT #: [id number] ROOM: 505 DOCTOR: TERESA DRAFT REPORT BIRTHDATE: [birth year] [facility] Test Date: 2018-05-26 Test Time: 16:26:43 Pat Name: KAROLINA CORTEZ Department: Room: 505 Gender: F Hand Sewer Shoes: Nehal Goldman : 1960 Requested By: RIGO JOEL Order Number: [id number] Reading MD: Fabián Del Toro MD Measurements Intervals [place] Rate: 95 P: 78 MS: 134 QRS: 92 QRSD: 87 T: 47 QT: 354 QTc: 445 Interpretive Statements Sinus rhythm Probable left atrial enlargement Borderline right axis deviation Borderline low voltage, extremity leads Compared to ECG 03/02/2018 18:00:11 Sinus tachycardia no longer present Electronically Signed On 05-27-2018 6:52:16 PST by Fabián Del Toro MD CM:EKGRPT:ELECTROCARDIOGRAM REPORT [id number] RIGO MOORE DRAFT REPORT RIGO JOEL MD
--- NOTE | ~2018-05-26 | CON ---
[place], [place] REPORT OF CONSULTATION NAME: KAROLINA CORTEZ [facility] #: [id number] UNIT #: [id number] ROOM: [facility] DOCTOR: AMINATA PIMENTEL MD BIRTHDATE: [birth year] DOS: 05/27/2018 PULMONARY CONSULTATION, EVALUATION AND MANAGEMENT REQUESTING PHYSICIAN: Hospitalist service. REASON FOR CONSULTATION: For assessment of the COPD exacerbation. HISTORY OF PRESENT ILLNESS: This is a 57-year-old white female patient who has been admitted to the hospital several times with acute exacerbation of chronic obstructive pulmonary disease noted chronic nicotine dependence. She has been last time admitted to the hospital and treated in February 2008 for patient similar diagnosis, presented to the Emergency Room as she developed progressive increased symptoms of chest congestion, coughing with purulent sputum expectoration for the last few days. The symptoms were noted progressively worsened and not responding to the outpatient treatment. She does have a cough with greenish sputum expectoration. Shortness of breath with [id number] exertion activity continuous wheezing. Retrosternal chest pain and tightness in the chest. Denies symptoms of hemoptysis or chest trauma. She has been assessed in the Emergency Room and admitted to the hospital for further medical management. REVIEW OF SYSTEMS: CONSTITUTIONAL: Fatigue and tiredness reported without any fever or chills. EYES: Denies any burning, redness, or tenderness. EARS, NOSE, THROAT SYMPTOMS: No sore throat, hoarseness, otalgia, postnasal drainage or epistaxis. CARDIOVASCULAR: Denies angina pain, palpitation, edema or pain of the lower extremity angina pain. GENITOURINARY SYMPTOMS: No dysuria, suprapubic pain, or hematuria. GASTROINTESTINAL: Denies abnormal weight loss, dysphagia, hematemesis, melena, nausea, vomiting or diarrhea. SKIN: Denies abnormal lesions or rashes. MUSCULOSKELETAL: No acute joint pain, redness, or tenderness. CENTRAL NERVOUS SYSTEM: No dizziness, diplopia, syncope or headaches. Remaining systems were reviewed. They were noted all negative. PAST MEDICAL HISTORY: 1. COPD. 2. Pulmonary nodule, ground glass opacity in . 3. Breast cancer diagnosed in 2004 and then recurrence in 05/2017, the patient underwent lumpectomy and currently treated with hormonal therapies. 4. General anxiety disorder. 5. Gastroesophageal reflux. 6. Hypercholesterolemia. 7. Hyperlipidemia. 8. Osteoporosis. 9. Uncomplicated moderate persistent bronchial asthma. [place], [place] REPORT OF CONSULTATION NAME: KAROLINA CORTEZ [facility] #: [id number] UNIT #: [id number] ROOM: [facility] DOCTOR: AMINATA PIMENTEL MD BIRTHDATE: [birth year] PAST SURGICAL HISTORY: 1. . 2. Lumpectomy, left breast 2004. 3. Carpal tunnel release. 4. . 5. D and C. 6. Fibrobronchoscopy in 08/2017. 7. Right total knee replacement. SOCIAL HISTORY: The patient is , 2 children, lives at home. Worked in the [employer] for 29 years. He has been noted tobacco use from age of [age] years old, 2 packs of cigarettes a day. Currently, stating that she is smoking a pack or less of cigarettes per day. There were no history of alcohol use or illicit drug use. FAMILY HISTORY: Father at 85 years with complication congestive heart failure. Mother in a 60-year with complication related to breast cancer. MEDICATIONS: The medications, which were administered use of Arimidex, vitamin D, fenofibrate, Flexeril, Effexor, nicotine replacement patches, Lovenox, Protonix, Pulmicort Respules, Lipitor, Mucinex, Solu-Medrol 60 mg q.8 hours, hydroxyzine, DuoNeb, Klonopin, Levaquin and others. DRUG ALLERGY HISTORY: The patient was noted as: 1. PENICILLIN. 2. SULFA DRUGS. PHYSICAL EXAMINATION: GENERAL: A 57-year-old female currently noted to be awake and alert without any distress this morning of assessment. Height of 5 feet 5 inches, weight 146 pounds, BMI 24. VITAL SIGNS: Normal temperature, respiratory rate 16, heart rate of 89-92, blood pressure 120/54-118/54. The pulse oxygen saturation recorded as 99% saturation on room air. HEENT: Examination shows head was atraumatic. Eyes nonicterus. NECK: Supple. CARDIOVASCULAR: S1, S2 is audible. LUNGS: Moderate reduction in breath sounds bilaterally with expiratory wheezing without any crackles. ABDOMEN: Soft, nontender and flat. EXTREMITIES: Without edema. SKIN: No lesions or rashes. CENTRAL NERVOUS SYSTEM: Cranial nerves 2-12 intact. No focal deficit. LABORATORY DATA: CBC in the labs today: WBC count is 10.9, hemoglobin 10.9, platelet count normal. Lactic acid yesterday normal at 0.8. PT/PTT yesterday on admission normal. CMP of 05/26/2018, BUN 21, creatinine 1.25. The remaining CMP and troponin normal. Troponin repeated yesterday all 3 sets were normal. Electrocardiogram does not show changes of acute ischemia. CBC this morning, WBC count 11.1, hemoglobin 10.6, and platelet count was normal. The BMP this [place], [place] REPORT OF CONSULTATION NAME: KAROLINA CORTEZ UNIT #: [id number] ROOM: [facility] DOCTOR: AMINATA PIMENTEL MD BIRTHDATE: [birth year] morning, BUN 50, creatinine 1.06. Phosphorus 2.0. The urine culture, no bacterial growth. One view chest x-ray that was done this morning reviewed from the PACS images. Increased interstitial marking noted MediPort in place in the right chest. No gross visible pulmonary nodules. IMPRESSION: The patient admitted to the hospital. The patient had recurrence of chronic obstructive pulmonary disease with current atypical chest pain with past history of breast cancer. The patient was treated since 05/2018, which are recurrent, also noted some nodular opacity in the right upper lung previously. The nodule noted micronodules with the previous bronchoscopy does not reveal any chronic infections. 2. Chronic nicotine dependence as well. PLAN OF TREATMENT: CT of the chest will be obtained to exclude any vascular abnormality for the patient and also to assess the lung parenchyma for patient with progressive any of those micronodules which may not be seen clearly on the chest x-ray were ordered. Solu-Medrol dose will be decreased gradually based on improvement in the symptoms. Continuation of other therapy, plan and management. Nicotine replacement patch to be continued. Other additional treatment changes will be made based on the progression of the illness. Usual care, other supportive plan of therapy and care plan with as well. Sputum for Gram stain and cultures for the patient will be obtained if not already done so. Thanks for allowing me to participate in the care of this patient. AMINATA VILLA MD CM:CONSTR:REPORT OF CONSULTATION 1209 05/27/18 1452 interface
--- NOTE | ~2018-05-26 | EKG ---
[place], [place] ELECTROCARDIOGRAM REPORT NAME: KAROLINA CORTEZ UNIT #: [id number] ROOM: 505 DOCTOR: TERESA DRAFT REPORT BIRTHDATE: [birth year] [facility] Test Date: 2018-05-26 Test Time: 13:22:19 Pat Name: KAROLINA CORTEZ Department: Room: 505 Gender: F [employer] Nurse: Nehal Goldman : 1960 Requested By: RIGO JOEL Order Number: [id number] Reading MD: Fabián Del Toro MD Measurements Intervals [place] Rate: 89 P: 80 SC: 144 QRS: 92 QRSD: 79 T: 53 QT: 367 QTc: 447 Interpretive Statements Sinus rhythm Probable left atrial enlargement Borderline right axis deviation Compared to ECG 03/02/2018 18:00:11 Sinus tachycardia no longer present Electronically Signed On 05-27-2018 6:51:58 PST by Fabián Del Toro MD CM:EKGRPT:ELECTROCARDIOGRAM REPORT 1322 [id number] RIGO MOORE DRAFT REPORT RIGO JOEL MD
--- NOTE | ~2018-05-26 | PR ---
[place], [place] PROGRESS NOTE NAME: KAROLINA CORTEZ [facility] #: [id number] UNIT #: [id number] ROOM: 505 DOCTOR: DAISY RAI MD,AMINATA BIRTHDATE: [birth year] DOS: 05/28/2018 SUBJECTIVE: The patient noted comfortable at this time with partial reduction of respiratory symptoms. Denies symptoms of chest pain. The culture of the sputum noted light growth of gram-negative bacilli and symptoms of fever or chills. The patient does not have symptoms of hemoptysis. The respiratory symptom noted partially decreased and was still noted ongoing significant respiratory symptoms at the present time. The patient was completed to be negative. OBJECTIVE: VITAL SIGNS: Normal temperature, respiratory rate 22/97, blood pressure 118/61, and pulse oxygen saturation on room air 93% saturation. HEENT: Head was atraumatic. Eyes nonicterus. NECK: Supple. CARDIOVASCULAR: S1, S2 audible. LUNGS: Moderate decreased breath sounds, bilateral expiratory wheezing, no crackles. ABDOMEN: Soft and nontender. Bowel sounds present. EXTREMITIES: Without acute edema. MUSCULOSKELETAL: Without acute deformities. CENTRAL NERVOUS SYSTEM: Cranial nerves 2-12 intact. LABORATORY DATA: Culture of the sputum showed light growth of gram-negative bacilli. The sputum Gram stain of yesterday, many white blood cells, many budding yeast, few gram-positive cocci in pairs and gram-positive bacilli. BMP of this morning, BUN 70, creatinine 1.07, glucose 130. Remaining electrolytes normal. CBC that was done on 05/28/2018, WBC count 12.5, hemoglobin 10.9, and platelet count 424,000. The patient had a CTA of the chest that was ordered yesterday was reviewed. Does not show any evidence of pulmonary embolism. There was no pulmonary infiltration was visible. Emphysema changes noted in the lungs bilaterally. Tree-in-bud opacity noted scattered in the lungs bilaterally. IMPRESSION: 1. The patient with acute ongoing pneumonia appearing as tree-in-bud appearance of gram-negative infection very likely. 2. Ongoing acute exacerbation of chronic obstructive pulmonary disease. 3. Nicotine dependence. PLAN OF MANAGEMENT: Continuation of the antibiotics and bronchodilators at this time. Changes in the medical management will be ordered according to the culture results, which most likely will be available tomorrow. The patient is getting Levaquin as the antibiotics. Solu-Medrol dose will be decreased to 40 mg q.8h. from 60 mg q.8h. Other therapy, plan and management nicotine placement patches as well. Additional treatment changes will be made based on the progression of the illness. Usual care. All other supportive plan of management and care plan and therapies. She has been known with history of cancer of the breast without any recurrence; currently treated with hormonal [place], [place] PROGRESS NOTE NAME: KAROLINA CORTEZ [facility] #: [id number] UNIT #: [id number] ROOM: [facility] DOCTOR: AMINATA PIMENTEL MD BIRTHDATE: [birth year] therapy under care of the medical oncology services from [place], [place]. AMINATA VILLA MD CM:PNTRANS 1251 1434 AMINATA RAI MD 05/28/18 1433 interface
--- NOTE | ~2018-05-26 | PR ---
[place], [place] PROGRESS NOTE NAME: KAROLINA CORTEZ UNIT #: [id number] ROOM: 505 DOCTOR: AMINATA PIMENTEL MD BIRTHDATE: [birth year] DOS: 06/01/2018 PULMONARY PROGRESS NOTE SUBJECTIVE: The patient has shown significant continued improvement and resolution of the respiratory symptoms. Coughing has improved markedly. Wheezing has resolved. Shortness of breath has improved. There was no sore throat reported by the patient today. OBJECTIVE: VITAL SIGNS: Normal temperature, respiratory rate 18, heart rate of 87, blood pressure 114/66. Pulse oxygen saturation was recorded as 97% saturation on room air at rest. HEENT: Shows head was atraumatic, eyes nonicterus. NECK: Supple. CARDIOVASCULAR: S1 and S2 audible. LUNGS: Without any wheezing or crackles at the present time. ABDOMEN: Soft, nontender. Bowel sounds present. EXTREMITIES: No acute edema. LABORATORY DATA: This morning, creatinine 1.24. The culture results of the bronchial washing of the bronchoscopy shows evidence of heavy growth of yeast. Acid fast growth, isolative, which was essentially noted negative for Mycobacterium avium complex, gordonae, kansasii, and tuberculosis. 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 IMPRESSION: The patient with resolving acute exacerbation of chronic obstructive pulmonary disease and tracheobronchitis. Tree-in-bud appearance was noted with centrilobular nodule in the lungs. PLAN OF MANAGEMENT: At this time, the new cultures of the bronchial washing will be monitored. At this time, Mycobacterium in fact which has been isolated will be monitored. No major intervention will be necessary. Outpatient assessment will be done. [place], [place] PROGRESS NOTE NAME: KAROLINA CORTEZ UNIT #: [id number] ROOM: 505 DOCTOR: AMINATA PIMENTEL MD BIRTHDATE: [birth year] AMINATA VILLA MD CM:PNTRANS 1147 1323 AMINATA RAI MD 06/01/18 1323 interface
--- NOTE | ~2018-05-26 | EKG ---
[place], [place] ELECTROCARDIOGRAM REPORT NAME: KAROLINA CORTEZ UNIT #: [id number] ROOM: 505 DOCTOR: TERESA DRAFT REPORT BIRTHDATE: [birth year] [facility] Test Date: 2018-05-26 Test Time: 19:11:09 Pat Name: KAROLINA CORTEZ Department: Room: 505 Gender: F Equipment Associate: Pramod Grigsby : 1960 Requested By: RIGO JOEL Order Number: [id number] Reading MD: Fabián Del Toro MD Measurements Intervals [place] Rate: 89 P: 83 MA: 141 QRS: 95 QRSD: 83 T: 57 QT: 366 QTc: 446 Interpretive Statements Sinus rhythm Borderline right axis deviation T-wave abnormality now present Sinus tachycardia no longer present Electronically Signed On 05-27-2018 6:52:37 PST by Fabián Del Toro MD CM:EKGRPT:ELECTROCARDIOGRAM REPORT 10 [id number] RIGO JOEL MD EPIPHTIMO DRAFT REPORT RIGO JOEL MD
--- NOTE | ~2018-05-26 | PR ---
[place], [place] PROGRESS NOTE NAME: KAROLINA CORTEZ UNIT #: [id number] ROOM: 505 DOCTOR: AMINATA PIMENTEL MD BIRTHDATE: [birth year] DOS: 05/31/2018 PULMONARY PROGRESS NOTE SUBJECTIVE: The patient is noted comfortable at this time, without any acute distress, resting in the bed. She has not been reporting any symptoms of fever or chills. Coughing has been decreased significantly after bronchoscopy but not completely resolved. Complaining of some sore throat. Denies symptoms of chest pain. Wheezing has improved significantly. OBJECTIVE: VITAL SIGNS: Normal temperature, respiratory rate 18, heart rate 88, blood pressure 115/62. The pulse oxygen saturation was recorded as 95% saturation on room air. HEENT: Examination shows head was atraumatic. Eyes nonicterus. NECK: Supple. CARDIOVASCULAR: S1 and S2 audible. LUNGS: Noted without any wheeze or crackles at the present time. ABDOMEN: Soft, nontender. Bowel sounds present. EXTREMITIES: Without any acute edema. LABORATORY DATA: Gram stain of the bronchial washings from yesterday noted as many white blood cells, a few Gram-positive cocci in pairs, a few budding yeast, normal lisandra; final culture results were pending. WBC count noted 16,000. IMPRESSION: 1. The patient with Gram-negative infection status post bronchoscopy and removal of mucus impaction of major airways, with acute exacerbation of chronic obstructive pulmonary disease, slowly improving. 2. The patient with history of breast cancer, treated with chemotherapy under guidance of the medical oncologist. PLAN OF MANAGEMENT: The patient may be considered for home discharge whenever desired, either today or tomorrow. Continuation of other therapy plan of management. Oral antibiotic based on the previous first culture results abnormality, would be appropriate with oral conversion. [place], [place] PROGRESS NOTE NAME: KAROLINA CORTEZ UNIT #: [id number] ROOM: 505 DOCTOR: AMINATA PIMENTEL MD BIRTHDATE: [birth year] AMINATA VILLA MD CM:PNTRANS 1116 1834 AMINATA RAI MD 05/31/18 1832 interface
--- NOTE | ~2018-05-26 | PR ---
[place], [place] PROGRESS NOTE NAME: KAROLINA CORTEZ UNIT #: [id number] ROOM: 505 DOCTOR: AMINATA PIMENTEL MD BIRTHDATE: [birth year] DOS: 05/30/2018 PULMONARY PROGRESS NOTE SUBJECTIVE: The patient remains in outpatient, noted severe cough with some chest pain at time. She has been treated with intravenous antibiotics. The patient was planned for bronchoscopy done today. Shortness of breath and wheezing, the patient remains persistent without any changes in symptoms. Denies any symptoms of headache, nausea, vomiting, diarrhea, abdominal pain, hematemesis, melena, or hematochezia. Remaining systems were reviewed, they were noted all negative. OBJECTIVE: VITAL SIGNS: For the patient which were recorded shows normal temperature, respiratory 18, heart rate 79, blood pressure 131/74. The pulse ox saturation on room air 93% saturation. HEENT: Head was atraumatic. Eyes nonicterus. NECK: Supple. CARDIOVASCULAR: S1, S2 audible. LUNGS: Moderate decreased breath sounds bilaterally with expiratory wheezing, no crackles. ABDOMEN: Soft, nontender and flat. EXTREMITIES: Without edema. CENTRAL NERVOUS SYSTEM: Cranial nerves 2-12 intact. MUSCULOSKELETAL: Without any acute deformities. SKIN: No lesions or rashes. CENTRAL NERVOUS SYSTEM: Intact. LABORATORY DATA: BMP this morning, BUN 24, creatinine 1.17. The culture of the sputum. There were no other labs done this morning. IMPRESSION: 1. The patient who has been currently noted with ongoing acute exacerbation of chronic obstructive pulmonary disease, bilateral pulmonary nodule, which were noted as centrilobular nodular cyst suggestive of acute infection, acute bronchitis, and gram-negative infection. 2. Acute exacerbation of chronic obstructive pulmonary disease. 3. History of breast cancer. PLAN OF MANAGEMENT: Proceed with fibrobronchoscopy as planned at this time, no other changes in treatment; otherwise will be needed. Additional treatment changes if necessary will be ordered after the bronchoscopy that will be done today. [place], [place] PROGRESS NOTE NAME: KAROLINA CORTEZ UNIT #: [id number] ROOM: 505 DOCTOR: AMINATA PIMENTEL MD BIRTHDATE: [birth year] AMINATA VILLA MD CM:PNTRANS 1353 1440 AMINATA RAI MD 05/30/18 1438 interface
--- NOTE | ~2018-05-26 | PR ---
[place], [place] PROGRESS NOTE NAME: KAROLINA CORTEZ UNIT #: [id number] ROOM: 505 DOCTOR: AMINATA PIMENTEL MD BIRTHDATE: [birth year] DOS: 05/29/2018 PULMONARY PROGRESS NOTE SUBJECTIVE: The patient noted comfortable at this time, still noted significant cough. Denies symptoms of chest pain or hemoptysis. The patient denies symptoms of fever or chills. Culture of the sputum noted with evidence of light growth of Klebsiella pneumoniae, which was noted sensitive to multiple antibiotics. OBJECTIVE: VITAL SIGNS: Normal temperature, respiratory rate 20, heart rate 74, blood pressure 137/63 this morning. Pulse ox saturation as 97% saturation, resting room air. HEENT: No acute change. NECK: Supple. CARDIOVASCULAR: S1, S2 audible. LUNGS: Noted with decreased breath sounds in the lungs bilaterally. Wheezing was present. ABDOMEN: Soft, nontender. Bowel sounds present. EXTREMITIES: Without any acute edema. LABORATORY DATA: Culture of the sputum light growth of gram-negative bacilli. IMPRESSION: 1. The patient with tree-in-bud appearance opacities in the lungs bilaterally with acute infection as bronchitis. 2. Acute exacerbation of chronic obstructive pulmonary disease. 3. History of breast cancer as well. PLAN OF MANAGEMENT: Continuation of current therapy, plan of management at this time as in progress. Usual care. Bronchoscopy planned to be done tomorrow morning because of severe excessive cough, which are noted nonproductive and current radiologic abnormality noted on CT scan to assess for chronic infections as well. [place], [place] PROGRESS NOTE NAME: KAROLINA CORTEZ UNIT #: [id number] ROOM: 505 DOCTOR: AMINATA PIMENTEL MD BIRTHDATE: [birth year] AMINATA VILLA MD CM:PNTRANS 5 9 AMINATA RAI MD 05/29/18 0859 interface
--- NOTE | ~2018-05-26 | PROC NOTE ---
[place], [place] PROCEDURE NOTE [id number] UN[facility] #: [id number] ROOM: 505 DOCTOR: DAISY RAI MD,AMINATA BIRTHDATE: [birth year] DOS: 05/30/2018 BRONCHOSCOPY NOTE PREOPERATIVE DIAGNOSIS: Pulmonary nodule, persistent cough, wheezing, maximum medical therapy. POSTOPERATIVE DIAGNOSES: Removal of copious amount of very thick plugs of the mucus on the endobronchial tree bilaterally. There were no endobronchial obstructive lesions. COMPLICATIONS: None. PROCEDURE DESCRIPTION: Informed consent obtained for the patient. The patient was brought to the OR and placed in a supine position. Conscious sedation was administered by the Anesthesia Department. After achieving proper sedation, airway introduced into the mouth. Bronchoscope advanced to the vocal cord and tracheal lumen. The tracheal lumen was noted with moderate amount of thick mucus secretion with small purulent secretion, suctioned out to the gian level. The gian was noted sharp. Right and the left endobronchial tree was inspected. Large thick plugs of mucus was present in endobronchial tree, which was removed with normal saline wash. The patient sent for culture. Procedure well tolerated by the patient without difficulty. Postoperative findings will be discussed with the patient once the patient recovered from the effects of acute sedation. AMINATA VILLA MD CM:PROCNOTE:PROCEDURE NOTE 1355 1432 AMINATA RAI MD
[~2018-05-26 12:50] MED LIST changes: +ARIMIDEX1 MG PO; +CLONAZEPAM1 MG PO; +HYDROXYZINE HCL50 MG PO; +LEVAQUIN500 M2 PO; +MUCINEX ER600 MG PO; +NORCO 10-325 T1 EACH PO; +PREDNISONE10 MG PO; +VITAMIN D35000 UNIT PO
[2018-05-26 12:52] VITALS: BP 117/47
[2018-05-26 13:42] LABS: BILIRUBIN NEGATIVE (NEGATIVE); BLOOD 1+ (NEGATIVE); CLARITY CLOUDY (CLEAR); COLOR YELLOW (YELLOW); GLUCOSE NEGATIVE (NEGATIVE); KETONE NEGATIVE (NEGATIVE); LEUKO ESTERASE 2+ (NEGATIVE); NITRITE NEGATIVE (NEGATIVE); SPECIFIC GRAVITY 1.025 (1.005-1.030); UROBILINOGEN 0.2 E.U./dl (0.2-1.0)
[2018-05-26 14:14] LABS: BASO % 0.3 % (0.0-1.0); EOS # 0.4 10*3/uL (0.0-0.4); EOS % 3.7 % (1.0-4.0); HEMATOCRIT 33.8 % (37.0-47.0); HEMOGLOBIN 10.9 g/dl (12.0-16.0); LYMPH # 2.3 10*3/uL (1.3-4.4); LYMPH % 20.8 % (27.0-41.0); MEAN CELL VOLUME 89.4 fl (81.0-99.0); MEAN CORPUSCULAR HGB 28.8 pg (27.0-31.0); MEAN CORPUSCULAR HGB CONC 32.2 g/dl (33.0-37.0); MEAN PLATELET VOLUME 9.4 fl (9.6-12.3); MONO % 8.7 % (3.0-9.0); NEUT # 7.2 10*3/uL (2.3-7.9); NEUT % 66.2 % (47.0-73.0); PLATELET COUNT AUTOMATED 330 10*3/uL (130-400); RED BLOOD COUNT 3.78 10*6/uL (4.10-5.10); RED CELL DISTRI WIDTH 14.6 % (0-14.5); WHITE BLOOD COUNT 10.9 10*3/uL (4.8-10.8)
[2018-05-26 14:19] LABS: EPITHELIAL CELLS TNTC
[2018-05-26 14:21] LABS: BACTERIA 1+; WBC 16-20 wbc/hpf (0-5)
[2018-05-26 14:24] LABS: ACT PARTIAL THROMBO TIME 27.9 SECONDS (20.8-31.5)
[2018-05-26 14:31] LABS: ALBUMIN 3.3 gm/dl (3.1-4.5); ALKALINE PHOSPHATASE 54 U/L (45-117); BUN 21 mg/dl (7-24); CHLORIDE 106 mmol/L (98-107); CREATININE 1.25 mg/dL (0.55-1.02); POTASSIUM 3.5 mmol/L (3.5-5.1); SGOT/AST 23 IU/L (3-35); SGPT/ALT 22 U/L (12-78); SODIUM 141 mmol/L (136-145); TOTAL PROTEIN 7.3 gm/dL (6.4-8.2)
[2018-05-26 14:32] LABS: TROPONIN I < 0.015 ng/ml (<0.045)
[2018-05-26 15:50] VITALS: BP 116/63
[2018-05-26 20:00] VITALS: BP 128/54
[2018-05-27] VITALS: BP 118/54
[2018-05-27 06:39] LABS: BASO % 0.1 % (0.0-1.0); HEMATOCRIT 33.5 % (37.0-47.0); HEMOGLOBIN 10.6 g/dl (12.0-16.0); LYMPH # 1.2 10*3/uL (1.3-4.4); LYMPH % 10.4 % (27.0-41.0); MEAN CELL VOLUME 90.3 fl (81.0-99.0); MEAN CORPUSCULAR HGB 28.6 pg (27.0-31.0); MEAN CORPUSCULAR HGB CONC 31.6 g/dl (33.0-37.0); MEAN PLATELET VOLUME 9.7 fl (9.6-12.3); MONO # 0.7 10*3/uL (0.1-1.0); MONO % 6.1 % (3.0-9.0); NEUT # 9.2 10*3/uL (2.3-7.9); NEUT % 83.1 % (47.0-73.0); PLATELET COUNT AUTOMATED 362 10*3/uL (130-400); RED BLOOD COUNT 3.71 10*6/uL (4.10-5.10); RED CELL DISTRI WIDTH 14.8 % (0-14.5); WHITE BLOOD COUNT 11.1 10*3/uL (4.8-10.8)
[2018-05-27 06:45] LABS: BUN 15 mg/dl (7-24); CHLORIDE 107 mmol/L (98-107); CREATININE 1.06 mg/dL (0.55-1.02); POTASSIUM 4.3 mmol/L (3.5-5.1); SODIUM 142 mmol/L (136-145)
[2018-05-27 06:51] LABS: THYROID STIM HORMONE (HS) 0.456 uIU/ml (0.358-4.75)
[2018-05-27 07:43] LABS: VITAMIN D, 25-HYDROXY 31.7 ng/mL (30-100)
[2018-05-27 08:00] VITALS: BP 114/68
[2018-05-27 12:00] VITALS: BP 115/52
[2018-05-27 16:00] VITALS: BP 116/47
[2018-05-27 20:00] VITALS: BP 117/55
[2018-05-28] VITALS: BP 120/55
[2018-05-28 06:12] LABS: BASO % 0.1 % (0.0-1.0); HEMATOCRIT 34.9 % (37.0-47.0); HEMOGLOBIN 10.9 g/dl (12.0-16.0); LYMPH # 1.5 10*3/uL (1.3-4.4); LYMPH % 11.9 % (27.0-41.0); MEAN CELL VOLUME 90.6 fl (81.0-99.0); MEAN CORPUSCULAR HGB 28.3 pg (27.0-31.0); MEAN CORPUSCULAR HGB CONC 31.2 g/dl (33.0-37.0); MEAN PLATELET VOLUME 9.6 fl (9.6-12.3); MONO # 0.8 10*3/uL (0.1-1.0); MONO % 6.7 % (3.0-9.0); NEUT # 10.1 10*3/uL (2.3-7.9); NEUT % 80.3 % (47.0-73.0); PLATELET COUNT AUTOMATED 424 10*3/uL (130-400); RED BLOOD COUNT 3.85 10*6/uL (4.10-5.10); RED CELL DISTRI WIDTH 14.9 % (0-14.5); WHITE BLOOD COUNT 12.5 10*3/uL (4.8-10.8)
[2018-05-28 06:42] LABS: BUN 17 mg/dl (7-24); CHLORIDE 105 mmol/L (98-107); CREATININE 1.07 mg/dL (0.55-1.02); POTASSIUM 4.6 mmol/L (3.5-5.1); SODIUM 140 mmol/L (136-145)
[2018-05-28 08:00] VITALS: BP 104/50
[2018-05-28 11:45] VITALS: BP 118/61
[2018-05-28 16:00] VITALS: BP 127/74
[2018-05-28 20:00] VITALS: BP 137/64
[2018-05-29] VITALS: BP 125/63
[2018-05-29 07:19] VITALS: BP 137/63
[2018-05-29 11:41] VITALS: BP 111/64
[2018-05-29 16:00] VITALS: BP 117/68
[2018-05-29 20:00] VITALS: BP 122/73
[2018-05-30] VITALS (9 sets, daily range): BP systolic 99–131; BP diastolic 54–84
[2018-05-30 06:57] LABS: CREATININE 1.17 mg/dL (0.55-1.02); POTASSIUM 4.5 mmol/L (3.5-5.1)
[2018-05-31] VITALS: BP 115/46
[2018-05-31 05:54] LABS: HEMATOCRIT 38.1 % (37.0-47.0); HEMOGLOBIN 12.2 g/dl (12.0-16.0); MEAN CELL VOLUME 89.2 fl (81.0-99.0); MEAN CORPUSCULAR HGB 28.6 pg (27.0-31.0); MEAN PLATELET VOLUME 9.1 fl (9.6-12.3); PLATELET COUNT AUTOMATED 528 10*3/uL (130-400); RED BLOOD COUNT 4.27 10*6/uL (4.10-5.10)
[2018-05-31 06:58] LABS: PLATELET SUFFICIENCY HIGH (NORMAL); POLYCHROMASIA SLIGHT; TOTAL CELLS COUNTED 100 #CELLS
[2018-05-31 08:00] VITALS: BP 115/62
[2018-05-31 12:00] VITALS: BP 104/48
[2018-05-31 15:05] LABS: ACID FAST SPEC PROCESSING Concentration (.)
[2018-05-31 16:00] VITALS: BP 106/65
[2018-05-31 20:00] VITALS: BP 108/66
[2018-06-01] VITALS: BP 111/61
[2018-06-01 06:22] LABS: CREATININE 1.24 mg/dL (0.55-1.02)
[2018-06-01] MEDS ORDERED: LEVOFLOXACIN500 MG PO (07:59)
[2018-06-01] MEDS ORDERED: PREDNISONE10 MG PO (07:59)
[2018-06-01 08:00] VITALS: BP 114/66
[2018-06-01 12:00] VITALS: BP 107/60
== END 2018-06-01 13:01 | disposition home or self-care (01) | DRG 190 ==
LOC: ED 12:50 → EDHOLD 14:51 → 5E 14:51
PROVIDERS: Emergency Medicine; Internal Medicine; Internal Medicine Critical Care Medicine; Student in an Organized Health Care Education/Training Program
PROC: 0BC88ZZ Extirpation of Matter from Left Upper Lobe Bronchus, Via Natural or Artificial Opening Endoscopic (ICD-10-PCS; principal; 2018-05-31)
PROC: 0BC78ZZ Extirpation of Matter from Left Main Bronchus, Via Natural or Artificial Opening Endoscopic (ICD-10-PCS; principal; 2018-05-31)
PROC: 0BCB8ZZ Extirpation of Matter from Left Lower Lobe Bronchus, Via Natural or Artificial Opening Endoscopic (ICD-10-PCS; principal; 2018-05-31)
PROC: 0BC48ZZ Extirpation of Matter from Right Upper Lobe Bronchus, Via Natural or Artificial Opening Endoscopic (ICD-10-PCS; principal; 2018-05-31)
PROC: 0BC58ZZ Extirpation of Matter from Right Middle Lobe Bronchus, Via Natural or Artificial Opening Endoscopic (ICD-10-PCS; principal; 2018-05-31)
PROC: 0BC98ZZ Extirpation of Matter from Lingula Bronchus, Via Natural or Artificial Opening Endoscopic (ICD-10-PCS; principal; 2018-05-31)
PROC: 0BC68ZZ Extirpation of Matter from Right Lower Lobe Bronchus, Via Natural or Artificial Opening Endoscopic (ICD-10-PCS; principal; 2018-05-31)
PROC: 0BC18ZZ Extirpation of Matter from Trachea, Via Natural or Artificial Opening Endoscopic (ICD-10-PCS; principal; 2018-05-31)
PROC: 0BC38ZZ Extirpation of Matter from Right Main Bronchus, Via Natural or Artificial Opening Endoscopic (ICD-10-PCS; principal; 2018-05-31)
DX: J44.1 Chronic obstructive pulmonary disease with (acute) exacerbation (principal); N17.0 Acute kidney failure with tubular necrosis; N30.01 Acute cystitis with hematuria; Q78.2 Osteopetrosis; D72.829 Elevated white blood cell count, unspecified; Z71.6 Tobacco abuse counseling; D50.9 Iron deficiency anemia, unspecified; E78.5 Hyperlipidemia, unspecified; Z96.651 Presence of right artificial knee joint; M81.0 Age-related osteoporosis without current pathological fracture; F17.210 Nicotine dependence, cigarettes, uncomplicated; M79.601 Pain in right arm; R91.8 Other nonspecific abnormal finding of lung field; Z98.891 History of uterine scar from previous surgery; Z85.3 Personal history of malignant neoplasm of breast; Z90.12 Acquired absence of left breast and nipple; Z90.49 Acquired absence of other specified parts of digestive tract; Z79.4 Long term (current) use of insulin; Z79.899 Other long term (current) drug therapy; Z88.0 Allergy status to penicillin; Z88.2 Allergy status to sulfonamides; Z80.3 Family history of malignant neoplasm of breast; Z82.49 Family history of ischemic heart disease and other diseases of the circulatory system; Z83.3 Family history of diabetes mellitus; B96.1 Klebsiella pneumoniae [K. pneumoniae] as the cause of diseases classified elsewhere

== ENCOUNTER → 2019-03-17 | Outpatient (CLI) | payer MEDICARE ==
[~2019-03-17] MED LIST changes: +ANASTROZOLE1 M1 PO; +ATIVAN0.5 MG PO; +CYCLOBENZAPRINE10 MG PO; +HYDROCODONE-AC1 EACH PO; +VENLAFAXINE150 MG PO
--- NOTE | ~2019-03-17 | EKG ---
[place], [place] ELECTROCARDIOGRAM REPORT NAME: KAROLINA CORTEZ UNIT #: [id number] ROOM: DOCTOR: TERESA DRAFT REPORT BIRTHDATE: [birth year] [facility] Test Date: 2019-03-17 Test Time: 12:09:32 Pat Name: KAROLINA CORTEZ Department: Room: Gender: F Credit Card Clerk: Doris Roman : 1960 Requested By: RITCHIE CHEN Order Number: [id number] Reading MD: Jose Alves MD Measurements Intervals [place] Rate: 81 P: 83 IA: 138 QRS: 91 QRSD: 84 T: 58 QT: 367 QTc: 426 Interpretive Statements Sinus rhythm Probable left atrial enlargement Borderline right axis deviation Compared to ECG 08/31/2018 17:29:41 T-wave abnormality no longer present Electronically Signed On 03-17-2019 13:46:48 PDT by Jose Alves MD CM:EKGRPT:ELECTROCARDIOGRAM REPORT 1209 1346 RITCHEI ROBERTSON DRAFT REPORT RITCHIE CHEN DO
[2019-03-17 12:15] LABS: BASO # 0.1 10*3/uL (0.0-0.1); BASO % 0.9 % (0.0-1.0); EOS # 0.3 10*3/uL (0.0-0.4); EOS % 5.5 % (1.0-4.0); HEMATOCRIT 38.6 % (37.0-47.0); HEMOGLOBIN 12.2 g/dl (12.0-16.0); LYMPH # 1.9 10*3/uL (1.3-4.4); LYMPH % 32.2 % (27.0-41.0); MEAN CELL VOLUME 92.6 fl (81.0-99.0); MEAN CORPUSCULAR HGB 29.3 pg (27.0-31.0); MEAN CORPUSCULAR HGB CONC 31.6 g/dl (33.0-37.0); MEAN PLATELET VOLUME 10.1 fl (9.6-12.3); MONO # 0.6 10*3/uL (0.1-1.0); MONO % 9.4 % (3.0-9.0); NEUT % 51.8 % (47.0-73.0); PLATELET COUNT AUTOMATED 394 10*3/uL (130-400); RED BLOOD COUNT 4.17 10*6/uL (4.10-5.10); RED CELL DISTRI WIDTH 14.6 % (0-14.5); WHITE BLOOD COUNT 5.8 10*3/uL (4.8-10.8)
[2019-03-17 12:29] LABS: ACT PARTIAL THROMBO TIME 27.7 SECONDS (20.0-32.1)
[2019-03-17 12:44] LABS: BILIRUBIN NEGATIVE (NEGATIVE); BLOOD TRACE-INTACT (NEGATIVE); CLARITY CLEAR (CLEAR); COLOR YELLOW (YELLOW); GLUCOSE NEGATIVE (NEGATIVE); KETONE NEGATIVE (NEGATIVE); LEUKO ESTERASE 3+ (NEGATIVE); NITRITE NEGATIVE (NEGATIVE); UROBILINOGEN 0.2 E.U./dl (0.2-1.0)
[2019-03-17 12:47] LABS: ALBUMIN 3.6 gm/dl (3.1-4.5); POTASSIUM 4.7 mmol/L (3.5-5.1)
[2019-03-17 12:50] LABS: CREATININE 1.16 mg/dL (0.55-1.02); TOTAL PROTEIN 7.5 gm/dL (6.4-8.2)
[2019-03-17 13:03] LABS: EPITHELIAL CELLS 15-20
== END | disposition home or self-care (01) ==
LOC: LAB 11:16
PROVIDERS: Orthopaedic Surgery
DX: Z01.818 Encounter for other preprocedural examination (principal); J43.9 Emphysema, unspecified; E78.00 Pure hypercholesterolemia, unspecified; E78.5 Hyperlipidemia, unspecified; I10 Essential (primary) hypertension; M79.609 Pain in unspecified limb; M19.90 Unspecified osteoarthritis, unspecified site; Z79.899 Other long term (current) drug therapy

== ENCOUNTER → 2019-06-19 | Outpatient (CLI) | payer MEDICARE | END | disposition home or self-care (01) | LOC: MAMMO 13:00 | DX: C50.912 Malignant neoplasm of unspecified site of left female breast (principal); R92.0 Mammographic microcalcification found on diagnostic imaging of breast ==

== ENCOUNTER → 2019-12-26 | Outpatient (CLI) | payer MEDICARE | END | disposition home or self-care (01) | LOC: MRI 13:00 | DX: T82.868A Thrombosis due to vascular prosthetic devices, implants and grafts, initial encounter (principal); C50.812 Malignant neoplasm of overlapping sites of left female breast; D70.1 Agranulocytosis secondary to cancer chemotherapy; R11.2 Nausea with vomiting, unspecified; D64.81 Anemia due to antineoplastic chemotherapy; R91.8 Other nonspecific abnormal finding of lung field; Z45.2 Encounter for adjustment and management of vascular access device; Z51.11 Encounter for antineoplastic chemotherapy ==

== ENCOUNTER 2021-01-09 18:01 | Emergency (ER) | payer MEDICARE ==
[~2021-01-09] VITALS: Ht 165.1 cm; Wt 67.1 kg
[2021-01-09 18:10] VITALS: BP 180/90
[2021-01-09] MEDS ORDERED: HYDROCODONE-AC1 EAC1 PO (20:11)
== END 2021-01-09 20:10 | disposition home or self-care (01) ==
LOC: ED 18:01
DX: S42.291A Other displaced fracture of upper end of right humerus, initial encounter for closed fracture (principal); F17.200 Nicotine dependence, unspecified, uncomplicated; Z88.0 Allergy status to penicillin; Z96.651 Presence of right artificial knee joint; Z88.2 Allergy status to sulfonamides; Z79.899 Other long term (current) drug therapy; Z85.3 Personal history of malignant neoplasm of breast; Z90.49 Acquired absence of other specified parts of digestive tract; Z98.51 Tubal ligation status; W19.XXXA Unspecified fall, initial encounter; Y93.89 Activity, other specified; Y92.89 Other specified places as the place of occurrence of the external cause; Y99.8 Other external cause status

== ENCOUNTER → 2021-01-17 | Outpatient (CLI) | payer MEDICARE ==
[~2021-01-17] MED LIST changes: +HYDROCODONE-AC1 EAC1 PO
== END | disposition home or self-care (01) ==
LOC: RAD 12:43
PROVIDERS: ATTEND Orthopaedic Surgery
DX: M80.021A Age-related osteoporosis with current pathological fracture, right humerus, initial encounter for fracture (principal)

== ENCOUNTER → 2021-01-31 | Outpatient (CLI) | payer MEDICARE | END | disposition home or self-care (01) | LOC: ORTHO 00:27 | PROVIDERS: ATTEND Orthopaedic Surgery | DX: S42.231D 3-part fracture of surgical neck of right humerus, subsequent encounter for fracture with routine healing (principal); X58.XXXD Exposure to other specified factors, subsequent encounter ==

== ENCOUNTER → 2021-02-23 | Outpatient (CLI) | payer MEDICARE | END | disposition home or self-care (01) | LOC: ORTHO 01:00 | PROVIDERS: ATTEND Orthopaedic Surgery | DX: M80.021D Age-related osteoporosis with current pathological fracture, right humerus, subsequent encounter for fracture with routine healing (principal) ==

== ENCOUNTER 2021-07-12 14:09 | Emergency (ER) | payer MEDICARE ==
[~2021-07-12] VITALS: Wt 54.4 kg
[2021-07-12 14:11] VITALS: BP 128/71
[2021-07-12 15:15] LABS: HEMATOCRIT 32.6 % (37.0-47.0); MEAN CORPUSCULAR HGB 33.1 pg (27.0-31.0); MEAN CORPUSCULAR HGB CONC 33.1 g/dl (33.0-37.0); MEAN PLATELET VOLUME 10.1 fl (9.6-12.3); PLATELET COUNT AUTOMATED 335 10*3/uL (130-400); RED BLOOD COUNT 3.26 10*6/uL (4.10-5.10); RED CELL DISTRI WIDTH 17.7 % (0-14.5); WHITE BLOOD COUNT 4.2 10*3/uL (4.8-10.8)
[2021-07-12 15:31] LABS: ALBUMIN 2.3 gm/dl (3.1-4.5); CREATININE 1.16 mg/dL (0.55-1.02); POTASSIUM 3.1 mmol/L (3.5-5.1); TOTAL PROTEIN 6.6 gm/dL (6.4-8.2)
[2021-07-12 16:14] LABS: TOTAL CELLS COUNTED 100 #CELLS
[2021-07-12 16:15] LABS: PLATELET SUFFICIENCY NORMAL (NORMAL); TOXIC GRANULATION MODERATE
[2021-07-12 16:16] LABS: STOMATOCYTE FEW
[2021-07-12] MEDS ORDERED: K-TAB20 MEQ PO (19:56)
== END 2021-07-12 20:10 | disposition home or self-care (01) ==
LOC: ED 14:09
PROVIDERS: Physician Assistant
DX: E86.0 Dehydration (principal); Z20.822 Contact with and (suspected) exposure to COVID-19; E87.6 Hypokalemia; R19.7 Diarrhea, unspecified; R55 Syncope and collapse; F17.200 Nicotine dependence, unspecified, uncomplicated; Z85.3 Personal history of malignant neoplasm of breast; Z85.830 Personal history of malignant neoplasm of bone; Z88.0 Allergy status to penicillin; Z88.2 Allergy status to sulfonamides; Z79.899 Other long term (current) drug therapy; Z96.651 Presence of right artificial knee joint; Z90.49 Acquired absence of other specified parts of digestive tract; Z98.1 Arthrodesis status; Z98.890 Other specified postprocedural states

== ENCOUNTER 2022-05-01 07:36 | Emergency (ER) | payer MEDICARE ==
[~2022-05-01] VITALS: Ht 165.1 cm; Wt 51.7 kg
[~2022-05-01 07:36] MED LIST changes: +K-TAB20 MEQ PO
[2022-05-01 08:30] LABS: HEMATOCRIT 37.3 % (37.0-47.0); MEAN CELL VOLUME 97.4 fl (81.0-99.0); MEAN CORPUSCULAR HGB CONC 29.8 g/dl (33.0-37.0); MEAN PLATELET VOLUME 9.7 fl (9.6-12.3); NUCLEATED RED BLOOD CELL 0.1 10*3/uL (0.0-0.0); NUCLEATED RED BLOOD CELL 0.9 % (0.0-0.0); PLATELET COUNT AUTOMATED 189 10*3/uL (130-400); RED BLOOD COUNT 3.83 10*6/uL (4.10-5.10); RED CELL DISTRI WIDTH 17.4 % (0-14.5); WHITE BLOOD COUNT 7.9 10*3/uL (4.8-10.8)
[2022-05-01 08:32] LABS: MANUAL DIFF REFLEX YES
[2022-05-01 08:42] LABS: ACT PARTIAL THROMBO TIME 28.7 SECONDS (20.0-32.1); INTERNATIONAL NORM RATIO 1.1 (2.0-3.5)
[2022-05-01 08:50] LABS: ATYPICAL LYMPHS 1 % (0-0); BASOPHILS 1 % (0-1); POLYCHROMASIA SLIGHT; TOTAL CELLS COUNTED 100 #CELLS
[2022-05-01 08:51] LABS: ALKALINE PHOSPHATASE 144 U/L (45-117); BUN 8 mg/dl (7-24); CHLORIDE 104 mmol/L (98-107); CREATININE 0.83 mg/dL (0.55-1.02); LIPASE 40 U/L (73-393); OVALOCYTES FEW; PLATELET SUFFICIENCY NORMAL (NORMAL); POTASSIUM 3.7 mmol/L (3.5-5.1); ROULEAUX SLIGHT; SGOT/AST 157 IU/L (3-35); SGPT/ALT 25 U/L (12-78); SODIUM 137 mmol/L (136-145); TOTAL PROTEIN 8.1 gm/dL (6.4-8.2)
[2022-05-01 13:47] VITALS: BP 165/69
== END 2022-05-01 14:27 | disposition home or self-care (01) ==
LOC: ED 07:36
PROVIDERS: Emergency Medicine
DX: G89.3 Neoplasm related pain (acute) (chronic) (principal); C79.81 Secondary malignant neoplasm of breast; J44.9 Chronic obstructive pulmonary disease, unspecified; E78.5 Hyperlipidemia, unspecified; Z88.0 Allergy status to penicillin; Z88.2 Allergy status to sulfonamides; Z79.899 Other long term (current) drug therapy; Z90.49 Acquired absence of other specified parts of digestive tract; Z98.890 Other specified postprocedural states; Z98.51 Tubal ligation status; Z87.891 Personal history of nicotine dependence